=== PATIENT | male | born 1955 | race Two or more races ===

== ENCOUNTER 2018-11-26 04:50 | Inpatient (IN) | payer BC, OTHER ==
[~2018-11-26] VITALS: Ht 188 cm; Wt 122.5 kg
--- NOTE | 2018-11-26 04:55 | NUR ---
PT [id number] C/O "FELT CHEST PAIN/BURNING IN HIS THROAT" -SOB. -N/V -DIAPHORETIC. PT DENIES PAIN AT THIS TIME. PT AOX4. NAD NOTED. RESP EVEN AND UNLABORED. PT ON MONITOR IN BED 2. WILL CONTINUE TO MONITOR.
--- NOTE | 2018-11-26 05:00 | NUR ---
TECH AT BEDSIDE FOR EKG
[2018-11-26] MEDS ORDERED: ONDANSETRON HCL/PF 4 MG/2 ML VIAL ONE (05:10)
[2018-11-26] MEDS ORDERED: NITROGLYCERIN 0.4 MG/TAB BOTTLE ONE ×2 (05:10→18:45)
--- NOTE | 2018-11-26 05:10 | NUR ---
BLOOD DRAWN AND GIVEN TO LAB
[2018-11-26] MEDS ORDERED: ASPIRIN 81 MG TAB.CHEW ONE (05:11)
[2018-11-26] MEDS ORDERED: NITROGLYCERIN PACKET 1 GM PACKET ONE (05:11)
--- NOTE | 2018-11-26 05:20 | NUR ---
RADIOLOGY AT BEDSIDE FOR XRAY
--- NOTE | 2018-11-26 05:23 | NUR ---
FAMILY AT BEDSIDE
[2018-11-26 05:25] LABS: BASOPHILS # (AUTO) 0.1 /CMM (0.0-0.2); BASOPHILS % (AUTO) 1.4 % (0.0-2.0); EOSINOPHILS % (AUTO) 5.5 % (0.0-6.0); HEMATOCRIT 40 % (39-51); HEMOGLOBIN 13.8 g/dL (13.5-17.5); LYMPHOCYTES # (AUTO) 1.7 /CMM (0.8-4.8); LYMPHOCYTES % (AUTO) 29.2 % (20.0-44.0); MEAN CORPUSCULAR HGB CONC 34 g/dl (31.0-36.0); MEAN CORPUSCULAR VOLUME 91 fL (80-96); MONOCYTES # (AUTO) 0.4 /CMM (0.1-1.30); MONOCYTES % (AUTO) 6.7 % (2.0-12.0); NEUTROPHILS # (AUTO) 3.3 /CMM (1.8-8.9); NEUTROPHILS % (AUTO) 57.2 % (43.0-81.0); PLATELET COUNT (AUTO) 200 /CMM (150-450); RED BLOOD CELL COUNT(AUTO) 4.43 MIL/uL (4.5-6.0); WHITE BLOOD COUNT (AUTO) 5.8 K/uL (4.3-11.0)
[2018-11-26] MEDS ORDERED: NITROGLYCERIN 0.4 MG/TAB BOTTLE SL ONE ×2 (05:30→18:30)
[2018-11-26] MEDS ORDERED: NITROGLYCERIN PACKET 1 GM PACKET TD ONE (05:30)
[2018-11-26] MEDS ORDERED: ONDANSETRON HCL/PF - ER 4 MG/2 ML VIAL IV ONE (05:30)
[2018-11-26] MEDS ORDERED: ASPIRIN 81 MG TAB.CHEW PO ONE (05:30)
[2018-11-26 05:34] LABS: CALCIUM, SERUM 8.9 mg/dL (8.5-10.1); CARBON DIOXIDE 26 mmol/L (21-32); CHLORIDE 104 mmol/L (98-107); GLUCOSE 279 mg/dL (74-106); SODIUM SERUM 139 mmol/L (136-145); UREA NITROGEN, BLOOD 28 mg/dL (7-18)
[2018-11-26 05:41] LABS: D-DIMER 0.19 mg/L(FEU (0.17-0.50)
[2018-11-26 05:48] LABS: ALANINE AMINOTRANSFERASE 31 U/L (12-78); ALBUMIN 3.7 g/dL (3.4-5.0); ALKALINE PHOSPHATASE 97 U/L (46-116); ASPARTATE AMINOTRANSFERASE 14 U/L (15-37); B-TYPE NATRIURETIC PEPTIDE 205 PG/ML (0-125); BILIRUBIN,DIRECT 0.1 mg/dL (0.0-0.2); BILIRUBIN,TOTAL 0.5 mg/dL (0.2-1.0)
--- NOTE | 2018-11-26 07:07 | NUR ---
PANEL CALL PLACED, DR WARD MACHINE SETTER SUPERVISOR, AWAITING CALLBACK
--- NOTE | 2018-11-26 09:24 | NUR ---
REPORT GIVEN TO LOLY ENCISO @ [facility] FOR CONT OF CARE.
[2018-11-26] MEDS ORDERED: IV NS 0.9% 1,000 ML IV PRN (10:11)
[2018-11-26] MEDS: ATORVASTATIN 10 MG TABLET PO SCH (11:37)
[2018-11-26] MEDS: CARVEDILOL 6.25 MG TABLET PO SCH ×2 (11:38→21:08)
[2018-11-26] MEDS: LOSARTAN POTASSIUM 50 MG TABLET PO SCH (11:39)
[2018-11-26] MEDS: ASPIRIN 81 MG TAB.CHEW PO SCH (11:39)
[2018-11-26] MEDS ORDERED: LEUP22.53 IM (11:51)
[2018-11-26] MEDS ORDERED: FURO20TA4 PO (11:51)
[2018-11-26] MEDS ORDERED: POTA2TAB18 PO (11:51)
[2018-11-26] MEDS ORDERED: MULT1TAB73 PO (11:51)
[2018-11-26] MEDS ORDERED: OMEG1CAP PO (11:51)
[2018-11-26] MEDS ORDERED: ASPI-1169 PO (11:51)
[2018-11-26] MEDS ORDERED: CARV6.252 PO (11:51)
[2018-11-26] MEDS ORDERED: BICA50TA49 PO (11:51)
[2018-11-26] MEDS ORDERED: TAMS0.4C34 PO (11:51)
[2018-11-26] MEDS ORDERED: ENAL5TAB PO (11:51)
[2018-11-26] MEDS ORDERED: HUM10VIA SQ (11:51)
[2018-11-26] MEDS ORDERED: ATOR40TA PO (11:51)
[2018-11-26] MEDS ORDERED: ASCO500T10 PO (11:51)
[2018-11-26] MEDS ORDERED: POTA10CA43 PO (11:51)
[2018-11-26] MEDS ORDERED: CHOL200026 PO (11:51)
[2018-11-26] MEDS: INSULIN NPH/REG 70/30 MIX INJ 100 UNIT/ML VIAL SQ SCH ×2 (13:00→17:47)
[2018-11-26] MEDS: CHOLECALCIFEROL 1,000 UNIT TABLET (VIT D3) PO SCH (13:48)
[2018-11-26] MEDS: TAMSULOSIN 0.4 MG CAP.SR.24H PO SCH ×2 (13:48→21:07)
--- NOTE | 2018-11-26 15:39 | NUR ---
CALLED PHARMACY TO PROVIDE INSULIN HUMULIN. PHARMACY WILL PROVIDE. NON ADMINISTERED THE DOSE FOR 1300. DRUG NOT AVAILABLE. WILL ADMINISTER WHEN DRUG IS AVAILABLE. Addendum: 11/26/18 at 1544 by ZARIA KO RN CORRECTION. INSULIN NPH.
[2018-11-26] MEDS ORDERED: DEXTROSE 50%-WATER 50 ML DISP.SYRIN IV PRN (16:30)
[2018-11-26] MEDS ORDERED: CARVEDILOL 6.25 MG TABLET PO SCH ×2 (17:00→21:00)
[2018-11-26] MEDS: BLOOD SUGAR DIAGNOSTIC 1 EACH STRIP IN SCH ×2 (17:47→23:30)
[2018-11-26] MEDS ORDERED: CT SWABBABLE VALVE TRANS SET 1 EA INFUS.SET MC ONE (18:07)
[2018-11-26] MEDS ORDERED: IV NS 0.9% 250 ML IV ONE (18:07)
[2018-11-26] MEDS ORDERED: IOHEXOL-350 100 ML VIAL IV ONE (18:07)
[2018-11-26] MEDS ORDERED: METOPROLOL TARTRATE INJ 5 MG/5 ML AMPUL ONE ×2 (18:12→18:45)
--- NOTE | 2018-11-26 18:16 | NUR ---
MS RN CLOSING NOTES PATIENT IS IN STABLE CONDITION. IN NO APPARENT DISTRESS. BEDSIDE RAILS ARE UPX2. BED IS LOCKED AND LOWERED. CALL LIGHT IS WITHIN REACH. IV LINE IS INTACT AND PATENT. ALL NEEDS WERE MET. WILL ENDORSE CARE TO DEVELOPMENT EDITOR NURSE FOR JADEN.
[2018-11-26] MEDS ORDERED: METOPROLOL TARTRATE INJ 5 MG/5 ML AMPUL IVP PRN (18:30)
[2018-11-26] MEDS ORDERED: IV NS 0.9% 500 ML IV ONE ×2 (18:30)
[2018-11-26] MEDS ORDERED: METOPROLOL TARTRATE INJ 5 MG/5 ML AMPUL IVP ONE ×2 (18:30)
--- NOTE | 2018-11-26 19:29 | NUR ---
CTA RN NOTES 182 RECEIVED PT FROM 322-1. A/OX4. DENIES ANY PAIN. NO RESPIRATORY DISTRESS NOTED. RAC G#[address] FLUSHED WITH NS. CONNECTED TO MONITOR. PT FOR CT ANGIO HEARD WITH 3D. 182 METOPROLOL 5MG IVP GIVEN. WILL FOLLOW CTA PROTOCOL. PT REMAINS A/OX4. DENIES ANY PAIN. NO RESPIRATORY DISTRESS NOTED. 1904 TOTAL METOPROLOL GIVEN, 50MG PROTOCOL. DR MICHAUD AWARE, ORDERED TO PROCEED WITH PROCEDURE. NTG GIVEN ORDERED. PT HR REMAINS ON 70S. 1920 CT ANGIO HEART DONE. REPORT SENT TO RADIOLOGIST. VS FOLLOWS: BP 126/58, HR 74, RR 15, 02 SAT 97%. PT A/OX4. NO RESPIRATORY DISTRESS NOTED. DENIES ANY PAIN. WILL BE TRANSPORTED BACK TO ROOM. IN STABLE CONDITION.
--- NOTE | 2018-11-26 20:21 | NUR ---
PAGEANT DIRECTOR OPENING NOTES RECEIVED PT FROM CT, PT AWAKE, ALERT ORIENTED X4, BREATHING EVEN AND UNLABORED ON ROOM AIR, NO COMPLAINT OF CHEST PAIN OR DISCOMFORT AT THIS TIME, TELE MONITORS IN PLACE, SR IN THE 70S. IV ACCESS ON THE LAC 20G AND RAC 18G PATENT AND FLUSHING WITH NS @100ML/HR. BED IN LOWEST LOCKED POSITION, CALL LIGHT WITHIN REACH AT ALL TIMES, WILL CONTINUE TO MONITOR,
[2018-11-26] MEDS ORDERED: ONDANSETRON HCL/PF 4 MG/2 ML VIAL IVP PRN (21:00)
[2018-11-26] MEDS ORDERED: MORPHINE SULFATE INJ 2 MG/ML DISP.SYRIN IV PRN (21:00)
[2018-11-26] MEDS ORDERED: ACETAMINOPHEN 325 MG TABLET PO PRN (21:00)
[2018-11-26] MEDS ORDERED: NITROGLYCERIN 0.4 MG/TAB BOTTLE SL PRN (21:00)
[2018-11-26 23:25] VITALS: BP 113/50
[2018-11-26] MEDS: INSULIN REGULAR, HUMAN 100 UNIT/ML 3 ML VIAL SQ PRN (23:37)
[2018-11-27 04:11] VITALS: BP 113/50
[2018-11-27] MEDS: INSULIN REGULAR, HUMAN 100 UNIT/ML 3 ML VIAL SQ PRN ×3 (06:06→12:32)
[2018-11-27] MEDS: BLOOD SUGAR DIAGNOSTIC 1 EACH STRIP IN SCH ×2 (06:18→12:29)
--- NOTE | 2018-11-27 07:02 | NUR ---
FOOD MANAGER CLOSING NOTES PT AWAKE, ALERT ORIENTED X4, BREATHING EVEN AND UNLABORED ON ROOM AIR, NO COMPLAINT OF CHEST PAIN OR DISCOMFORT AT THIS TIME, TELE MONITORS IN PLACE, SR IN THE 70S. IV ACCESS ON THE LAC 20G AND RAC 18G PATENT AND FLUSHING WITH NS @100ML/HR. BED IN LOWEST LOCKED POSITION, PT JUST OUT OF SHOWER. CALL LIGHT WITHIN REACH AT ALL TIMES, WILL ENDORSE TO DAY NURSE FOR JADEN.
[2018-11-27 07:34] LABS: BASOPHILS % (AUTO) 0.7 % (0.0-2.0); EOSINOPHILS % (AUTO) 5.9 % (0.0-6.0); HEMATOCRIT 40 % (39-51); LYMPHOCYTES # (AUTO) 1.9 /CMM (0.8-4.8); LYMPHOCYTES % (AUTO) 31.1 % (20.0-44.0); MEAN CORPUSCULAR HGB CONC 35 g/dl (31.0-36.0); MEAN CORPUSCULAR VOLUME 90 fL (80-96); MONOCYTES # (AUTO) 0.4 /CMM (0.1-1.30); MONOCYTES % (AUTO) 5.9 % (2.0-12.0); NEUTROPHILS # (AUTO) 3.5 /CMM (1.8-8.9); NEUTROPHILS % (AUTO) 56.4 % (43.0-81.0); PLATELET COUNT (AUTO) 222 /CMM (150-450); WHITE BLOOD COUNT (AUTO) 6.2 K/uL (4.3-11.0)
[2018-11-27 07:40] LABS: ALANINE AMINOTRANSFERASE 24 U/L (12-78); ALBUMIN 3.7 g/dL (3.4-5.0); ALKALINE PHOSPHATASE 97 U/L (46-116); ASPARTATE AMINOTRANSFERASE 15 U/L (15-37); BILIRUBIN,TOTAL 0.6 mg/dL (0.2-1.0); CARBON DIOXIDE 24 mmol/L (21-32); CHLORIDE 103 mmol/L (98-107); CREATININE 0.9 mg/dL (0.6-1.3); GLUCOSE 199 mg/dL (74-106); MAGNESIUM 1.9 mg/dL (1.8-2.4); PHOSPHORUS 3.4 mg/dL (2.5-4.9); POTASSIUM 4.3 mmol/L (3.5-5.1); SODIUM SERUM 139 mmol/L (136-145); TOTAL PROTEIN, SERUM 7.1 g/dL (6.4-8.2); UREA NITROGEN, BLOOD 20 mg/dL (7-18)
[2018-11-27 07:50] LABS: CHOLESTEROL 153 mg/dL (<200); HDL CHOLESTEROL 32 mg/dL (40-60); LDL 67 mg/dL (0-99); TRIGLYCERIDES 434 mg/dL (30-150)
[2018-11-27 08:00] VITALS: BP 142/70
--- NOTE | 2018-11-27 08:00 | NUR ---
RN NOTES RECEIVED PATIENT IN THE BED A/O X4, TELE SR-78. PATIENT HAS NO ACUTE RESPIRATORY DISTRESS, UNLABORED. V/S STABLE, BS-241 MG/DL, COVERAGE GIVEN ALSO ADMINISTERED SCHEDULED MEDICATION. PATIENT HAS IV ACCESS ON RIGHT AC AREA INTACT. PATIENT USING URINAL. AND BRP. CALL LIGHT WITHIN TO REACH. SAFETY PRECAUTION MAINTAINED ALL THE TIME.
[2018-11-27] MEDS ORDERED: ASCORBIC ACID 500 MG TABLET PO SCH (09:00)
[2018-11-27] MEDS ORDERED: ENALAPRIL MALEATE (5 MG) 5 MG TABLET PO SCH (09:00)
[2018-11-27] MEDS ORDERED: MULTIVIT W/MINERALS 1 TAB TABLET PO SCH (09:00)
[2018-11-27] MEDS ORDERED: FUROSEMIDE 20 MG TABLET PO SCH (09:00)
[2018-11-27] MEDS ORDERED: ATORVASTATIN 40 MG TABLET PO SCH (09:00)
[2018-11-27] MEDS ORDERED: BICALUTAMIDE 50 MG TABLET PO SCH (09:00)
[2018-11-27] MEDS ORDERED: ASPIRIN 81 MG TAB.CHEW PO SCH ×2 (09:00)
[2018-11-27] MEDS ORDERED: CARVEDILOL 6.25 MG TABLET PO SCH (09:00)
[2018-11-27] MEDS: ATORVASTATIN 10 MG TABLET PO SCH (09:41)
[2018-11-27] MEDS: ASPIRIN 81 MG TAB.CHEW PO SCH (09:42)
[2018-11-27] MEDS: LOSARTAN POTASSIUM 50 MG TABLET PO SCH (09:42)
[2018-11-27] MEDS: CHOLECALCIFEROL 1,000 UNIT TABLET (VIT D3) PO SCH (09:42)
[2018-11-27 09:57] VITALS: BP 142/70
[2018-11-27] MEDS: INSULIN NPH/REG 70/30 MIX INJ 100 UNIT/ML VIAL SQ SCH (10:02)
--- NOTE | 2018-11-27 10:26 | NUR ---
WOUND CARE CONSULT: PT PRESENTS WITH LEFT GREAT TOE PLANTAR CALLUS, PRESENT ON ADMISSION. PT WILL FOLLOW UP WITH HIS OWN APPLICATION ASSISTANT AFTER DISCHARGE. DISCUSSED WITH CIRCULATING NURSE AND NURSING STAFF.
--- NOTE | 2018-11-27 12:00 | NUR ---
RN NOTES BS-191 MG/DL, COVERAGE GIVEN, PATIENT REFUSED PAIN AT THIS TIME, STABLE. PATIENT WILL D/C HOME PER MD ORDER.
--- NOTE | 2018-11-27 13:35 | NUR ---
DISCHARGE NOTES PATIENT DISCHARGE AT THIS TIME GOING HOME. PATIENT A/O X4, STABLE, REFUSED PAIN AT THIS TIME, MED COMPLAINT, NO RESPIRATORY DISTRESS, V/S STABLE, MED RECONCILIATION AND DISCHARGE ORDER REVIEWED AND EXPLAINED TO PATIENT . PATIENT VERBALIZED UNDERSTANDING. BELONGING WITH THE PATIENT. PATIENT WILL FOLLOW PRIMARY MD, AND TAKE MEDICATION PRESCRIBED. PATIENT NEUROSURGERY RESEARCH DIRECTOR BY ROOMMATE NAME TAYLOR PHONE # [phone].ESCORTED PATIENT TO THE LOBBY FOR SAFETY.
== END 2018-11-27 13:30 | disposition home or self-care (01) | DRG 303 ==
LOC: ER 04:50 → TELE 09:24 → MED 11-27 10:54
PROVIDERS: ADMIT Internal Medicine; ATTEND Internal Medicine
DX: I25.110 Atherosclerotic heart disease of native coronary artery with unstable angina pectoris (principal); E11.9 Type 2 diabetes mellitus without complications; Z95.1 Presence of aortocoronary bypass graft; I10 Essential (primary) hypertension; E66.9 Obesity, unspecified; Z68.34 Body mass index [BMI] 34.0-34.9, adult; E78.5 Hyperlipidemia, unspecified; I25.10 Atherosclerotic heart disease of native coronary artery without angina pectoris; Z87.891 Personal history of nicotine dependence; Z79.4 Long term (current) use of insulin; I25.2 Old myocardial infarction
CPT/HCPCS: 36415; 71045-TC; 75574; 80048-TC; 80053-TC; 80061-TC; 80076-TC; 82962-TC; 83735-TC; 83880; 84100-TC; 84484-TC; 85025-TC; 85378-TC; 85730-TC; 87081-TC; 93307-TC; G0378; J1815; J2405; J3490; J7030; J7050; Q9967